=== PATIENT | male | born 1980 | race Caucasian/White ===

== ENCOUNTER → 2016-04-13 | Outpatient (REF) | payer OTHER | LOC: M LAB REF 13:37 | PROVIDERS: ATTEND Specialist | DX: K13.79 Other lesions of oral mucosa (principal) ==

== ENCOUNTER 2019-04-11 02:25 | Emergency (ER) | payer OTHER ==
[2019-04-11 03:58] VITALS: BP 166/90
== END 2019-04-11 03:59 | disposition home or self-care (01) ==
LOC: M ED 02:25
DX: Z13.39 Encounter for screening examination for other mental health and behavioral disorders (principal); F41.9 Anxiety disorder, unspecified; F13.90 Sedative, hypnotic, or anxiolytic use, unspecified, uncomplicated; F11.90 Opioid use, unspecified, uncomplicated; Z87.891 Personal history of nicotine dependence